=== PATIENT | female | born 1965 | race American Indian/Alaskan Native ===

== ENCOUNTER 2021-07-23 14:00 | Emergency (ER) | payer MEDICAID ==
[2021-07-23 14:11] VITALS: BP 149/98
--- NOTE | 2021-07-23 16:23 | Emergency Department Report ---
Blank Doc - Documentation Documentation: Patient was not in the examination room. I was informed by staff that she rec eived colostomy supplies and likely eloped.
== END 2021-07-23 16:18 ==
LOC: ED 14:00
DX: Z93.3 Colostomy status (principal); Z53.21 Procedure and treatment not carried out due to patient leaving prior to being seen by health care provider

== ENCOUNTER 2021-07-28 12:35 | Emergency (ER) | payer MEDICAID ==
[2021-07-28 12:45] VITALS: BP 162/100
--- NOTE | 2021-07-28 14:12 | Emergency Department Report ---
ED General Adult HPI - General Chief complaint: Psych Stated complaint: anxiety Time Seen by Provider: 07/28/21 14:03 Source: patient Mode of arrival: Wheelchair Limitations: No Limitations - History of Present Illness Initial comments: Patient presents with multiple complaints. She actually focused on and called an ambulance for shortness of breath. She states that she has had a runny nose and a cold. She was concerned because when she lays down she feels a little short of breath. There is no recent history of trauma. Patient does not get short of breath sitting here and speaking. When she gets up and moves, she states that she does get a little winded. There has been no productive cough. She has no fevers. There is no swelling in the feet or ankles. She states that she just feels very nervous about being alone. Patient does state that she has been dealing with depression. She has a colostomy that is difficult for her to manage. She has moved here and is having difficulty with her apartment. She states that she is trying to help her daughter out and her own financial situation has become more bleak. She is not suicidal or homicidal. She states that sometimes she does feel like giving up however. - Related Data Previous Rx's Medication Instructions Recorded Last Taken Type Furosemide [Lasix TAB] 40 mg PO QDAY #7 tablet 07/28/21 Unknown Rx Potassium Chloride [K-Dur] 20 meq PO BID #14 tab 07/28/21 Unknown Rx Allergies Allergy/AdvReac Type Severity Reaction Status Date / Time iodine Allergy Unknown Verified 07/28/21 12:40 ED Review of Systems ROS: Stated complaint: anxiety Other details as noted in HPI Comment: All other systems reviewed and negative Constitutional: denies: fever Eyes: denies: vision change ENT: as per HPI, congestion. denies: epistaxis Respiratory: see HPI, cough, shortness of breath Cardiovascular: denies: chest pain Endocrine: denies: unexplained weight loss Gastrointestinal: denies: abdominal pain Genitourinary: denies: dysuria Musculoskeletal: denies: back pain Skin: denies: rash Neurological: denies: headache Hematological/Lymphatic: denies: easy bruising ED Past Medical Hx - Past Medical History Previous Medical History?: Yes Hx Hypertension: Yes Hx Congestive Heart Failure: Yes Hx Diabetes: Yes Additional medical history: lupus - Surgical History Past Surgical History?: Yes Additional Surgical History: Colostomy - Family History Family history: hypertension - Medications Home Medications: Home Medications Medication Instructions Recorded Confirmed Last Taken Type Furosemide [Lasix TAB] 40 mg PO QDAY #7 tablet 07/28/21 Unknown Rx Potassium Chloride [K-Dur] 20 meq PO BID #14 tab 07/28/21 Unknown Rx ED Physical Exam - General Limitations: No Limitations, Other (Pulse ox noted and hypoxic. This improves with treatment) General appearance: alert, in distress (Mild) - Head Head exam: Present: atraumatic, normocephalic, normal inspection - Eye Eye exam: Present: normal appearance, EOMI. Absent: scleral icterus - ENT ENT exam: Present: normal exam, normal orophraynx - Neck Neck exam: Present: normal inspection. Absent: meningismus - Respiratory Respiratory exam: Present: normal lung sounds bilaterally. Absent: respiratory distress - Cardiovascular Cardiovascular Exam: Present: regular rate, normal rhythm - GI/Abdominal GI/Abdominal exam: Present: soft. Absent: tenderness - Extremities Exam Extremities exam: Present: normal capillary refill - Back Exam Back exam: Absent: CVA tenderness (R), CVA tenderness (L) - Neurological Exam Neurological exam: Present: alert, oriented X3, CN II-XII intact, normal gait, reflexes normal. Absent: motor sensory deficit - Psychiatric Psychiatric exam: Present: normal affect, normal mood - Skin Skin exam: Present: warm, dry ED Course Vital Signs 07/28/21 12:41 Temperature 97.9 F Pulse Rate 72 Respiratory 16 Rate Blood Pressure 162/100 [Left] O2 Sat by Pulse 92 Oximetry - Reevaluation(s) Reevaluation #1: 07/28/21 14:13 Chest x-ray was ordered. Old records reviewed. Reevaluation #2: 07/28/21 16:53 X-ray was noted and the patient was discharged. ED Medical Decision Making - Radiology Data Radiology results: report reviewed - Medical Decision Making Patient presents with multiple issues but primarily focused on shortness of breath. She actually does have pleural effusions. She believes that she is supposed to be taking water pill but is not taking it. Cannot verify her diuretic at all. At this time, I do believe that she likely has orthopnea related to pulmonary edema. She has been given diuretics here. Patient states that this been going on for quite some time. She has no pedal edema. She is not hypoxic. She is not having chest pain. I do not believe this represents a primary coronary event. Again, she states that she thinks that she is supposed to be taking a diuretic but is not. Patient was referred to her PCP for recheck. I do believe that diuresis is appropriate. Again, she is not hypoxic. She is in no respiratory distress at this time. She has been invited to return for any problems. Critical Care Time: No Critical care attestation.: If time is entered above; I have spent that time in minutes in the direct care of this critically ill patient, excluding procedure time. ED Disposition Clinical Impression: Situational depression, Shortness of breath, Pleural effusion URI (upper respiratory infection) Qualifiers: URI type: unspecified viral URI Qualified Code(s): J06.9 - Acute upper respiratory infection, unspecified Disposition: HOME / SELF CARE / HOMELESS Is pt being admited?: No Condition: Stable Instructions: Shortness of Breath, Adult, [id number], Cough, Adult, [id number], Shortness of Breath, Adult, Pleural Effusion Additional Instructions: Elevate the feet. Avoid salt. Continue to drink water. See your regular doctor for recheck. Take your home medication. Prescriptions: Potassium Chloride [K-Dur] 20 meq PO BID #14 tab Furosemide [Lasix TAB] 40 mg PO QDAY #7 tablet Referrals: PRIMARY MD REMINGTON [Referring] - 3-5 Days SURAJ WEAVER MD [Staff Physician] - 3-5 Days
--- NOTE | 2021-07-28 15:13 | XRay Report ---
CHEST 2 VIEWS INDICATION / CLINICAL INFORMATION: dyspnea. COMPARISON: None available. FINDINGS: SUPPORT DEVICES: None. HEART / MEDIASTINUM: Markedly enlarged cardiac silhouette, somewhat water bottle shaped, suggesting p ericardial effusion. LUNGS / PLEURA: Hazy bibasilar opacities. No focal consolidation. Trace bilateral effusions. No pneum othorax. ADDITIONAL FINDINGS: No significant additional findings. IMPRESSION: 1. Moderate to large pericardial effusion. 2. Hazy bibasilar airspace disease with suspected trace bilateral effusions. Signer Name: Vignesh Mejia MD Signed: 07/28/2021 3:08 PM Workstation Name: [id number]
[2021-07-28] MEDS ORDERED: FUROSEMIDE 20 MG TAB PO ONE (16:17)
== END 2021-07-28 18:09 | disposition home or self-care (01) ==
LOC: ED 12:35
DX: F32.9 Major depressive disorder, single episode, unspecified (principal); J06.9 Acute upper respiratory infection, unspecified; J90 Pleural effusion, not elsewhere classified; I11.0 Hypertensive heart disease with heart failure; I50.9 Heart failure, unspecified; E11.9 Type 2 diabetes mellitus without complications; Z98.890 Other specified postprocedural states; Z79.899 Other long term (current) drug therapy; Z88.6 Allergy status to analgesic agent
CPT/HCPCS: 71046; 99283

== ENCOUNTER 2021-08-01 13:33 | Emergency (ER) | payer MEDICAID ==
[2021-08-01 14:13] VITALS: BP 156/105
== END 2021-08-01 14:15 | disposition left against medical advice (07) ==
LOC: ED 13:33
DX: R06.02 Shortness of breath (principal); Z53.21 Procedure and treatment not carried out due to patient leaving prior to being seen by health care provider

== ENCOUNTER 2021-08-27 21:22 | Emergency (ER) | payer MEDICAID ==
--- NOTE | 2021-08-27 22:01 | Emergency Department Report ---
ED Psych HPI - General Chief Complaint: Medical Clearance Stated Complaint: SI. BODY ACHES Time Seen by Provider: 08/27/21 21:56 Source: EMS Mode of arrival: Stretcher - History of Present Illness Initial Comments: Patient is 56 years old female with history of bipolar disorder, depression, hypertension, congestive heart failure and SLE. Patient brought to the emergency room via EMS from home for evaluation of depression and suicidal ideation. Patient stated that she is not happy with her current situation. Patient stated that she had a colostomy bag placed 8 months ago because of intestinal obstruction and that make her feel really bad around he will. She also reported that her parents . She stated that she tried to kill herself 2 weeks ago by overdosing on her blood pressure medication. Patient stated that she is hearing voices also. She denied any homicidal ideation. MD Complaint: suicidal ideation, feels depressed - Related Data Previous Rx's Medication Instructions Recorded Last Taken Type Furosemide [Lasix TAB] 40 mg PO QDAY #7 tablet 07/28/21 Unknown Rx Potassium Chloride [K-Dur] 20 meq PO BID #14 tab 07/28/21 Unknown Rx Allergies Allergy/AdvReac Type Severity Reaction Status Date / Time iodine Allergy Unknown Verified 07/28/21 12:40 ED Review of Systems ROS: Stated complaint: SI. BODY ACHES Other details as noted in HPI Comment: All other systems reviewed and negative Constitutional: denies: chills, fever Respiratory: denies: cough, orthopnea, shortness of breath, SOB with exertion Cardiovascular: denies: chest pain, palpitations Gastrointestinal: denies: abdominal pain, nausea, vomiting, diarrhea, constipation, hematemesis, melena, hematochezia Musculoskeletal: arthralgia, myalgia Neurological: denies: headache, weakness, numbness, paresthesias, confusion, abnormal gait Psychiatric: depression, auditory hallucinations, suicidal thoughts. denies: visual hallucinations, homicidal thoughts ED Past Medical Hx - Past Medical History Hx Hypertension: Yes Hx Congestive Heart Failure: Yes Hx Diabetes: Yes Additional medical history: lupus - Surgical History Additional Surgical History: Colostomy - Medications Home Medications: Home Medications Medication Instructions Recorded Confirmed Last Taken Type Furosemide [Lasix TAB] 40 mg PO QDAY #7 tablet 07/28/21 Unknown Rx Potassium Chloride [K-Dur] 20 meq PO BID #14 tab 07/28/21 Unknown Rx ED Physical Exam - General Limitations: No Limitations General appearance: alert, in no apparent distress, anxious - Head Head exam: Present: atraumatic, normocephalic, normal inspection - Eye Eye exam: Present: normal appearance, PERRL - ENT ENT exam: Present: normal exam, normal orophraynx, mucous membranes moist - Neck Neck exam: Present: normal inspection, full ROM. Absent: tenderness, meningismus - Respiratory Respiratory exam: Present: normal lung sounds bilaterally - Cardiovascular Cardiovascular Exam: Present: regular rate, normal rhythm, normal heart sounds - GI/Abdominal GI/Abdominal exam: Present: soft, normal bowel sounds, other (Colostomy bag in place.). Absent: distended, tenderness, guarding, rebound, rigid, organomegaly, mass, bruit, pulsatile mass, hernia - Extremities Exam Extremities exam: Present: normal inspection, full ROM, normal capillary refill. Absent: tenderness - Back Exam Back exam: Present: normal inspection. Absent: CVA tenderness (R), CVA tenderness (L) - Neurological Exam Neurological exam: Present: alert, oriented X3, CN II-XII intact - Psychiatric Psychiatric exam: Present: depressed, anxious, suicidal ideation. Absent: agitated, flat affect, manic, homicidal ideation - Skin Skin exam: Present: warm, intact, normal color ED Course Vital Signs 08/27/21 21:32 Temperature 97.9 F Pulse Rate 82 Respiratory 18 Rate Blood Pressure 162/95 [Right] O2 Sat by Pulse 99 Oximetry ED Medical Decision Making - Lab Data Result diagrams: 08/27/21 22:26 08/27/21 22:26 - Medical Decision Making Patient is 56 years old female with history of bipolar disorder, depression, hypertension, congestive heart failure and SLE. Patient brought to the emergency room via EMS from home for evaluation of depression and suicidal ideation. Patient stated that she is not happy with her current situation. Patient stated that she had a colostomy bag placed 8 months ago because of intestinal obstruction and that make her feel really bad around he will. She also reported that her parents . She stated that she tried to kill herself 2 weeks ago by overdosing on her blood pressure medication. Patient stated that she is hearing voices also. She denied any homicidal ideation. Labs reviewed and is unremarkable except for hemoglobin of 9.4 which indicating chronic anemia. UA and UDS is still pending. Patient is medically cleared to be evaluated by our psychiatric team. Critical care attestation.: If time is entered above; I have spent that time in minutes in the direct care of this critically ill patient, excluding procedure time. ED Disposition Clinical Impression: Suicidal ideation, Generalized pain Condition: Stable Referrals: PRIMARY CARE, [Primary Care Provider] - 3-5 Days
[2021-08-27 23:06] LABS: Basophils # (Auto) 0.1 K/mm3 (0.0-0.1); Basophils % (Auto) 1.8 % (0.0-1.8); Eosinophils % (Auto) 0.8 % (0.0-4.3); Hematocrit 30.9 % (30.3-42.9); Hemoglobin 9.4 gm/dl (10.1-14.3); Lymphocytes # (Auto) 1.6 K/mm3 (1.2-5.4); Lymphocytes % (Auto) 32.4 % (13.4-35.0); Mean Corpuscular HGB Conc 31 % (30-34); Mean Corpuscular Volume 74 fl (79-97); Monocytes # (Auto) 0.5 K/mm3 (0.0-0.8); Monocytes % (Auto) 10.7 % (0.0-7.3); Platelet Count 278 K/mm3 (140-440); Red Blood Count 4.18 M/mm3 (3.65-5.03)
[2021-08-27 23:22] LABS: BUN/Creatinine Ratio 34; Blood Urea Nitrogen 34 mg/dL (7-17); Calcium 9.7 mg/dL (8.4-10.2); Hemolysis Index 0
[2021-08-27] MEDS ORDERED: ACETAMINOPHEN 325 MG TAB ONE (23:54)
[2021-08-27] MEDS ORDERED: ACETAMINOPHEN 325 MG TAB PO ONE (23:57)
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
[2021-08-28] MEDS ORDERED: DIVALPROEX DR 125 MG TAB PO SCH (11:00)
--- NOTE | 2021-08-28 11:10 | Emergency Department Report ---
Blank Doc - Documentation Documentation: Patient is still here with psychiatric illness that is going to require admiss ion. Psychiatric consult has been noted. Medically, patient had started complaining of decreased output from her colostomy. She reported abdominal pain. There was no obvious blood. Patient had normal color stool in the colostomy bag. She did have some distention without tympany. Plain films were ordered. 1300-plain films have been noted. Patient was treated symptomatically. We will continue to await psychiatric disposition.
--- NOTE | 2021-08-28 12:33 | XRay Report ---
ABDOMEN 4 VIEW(S) INDICATION: decreased colostomy output. COMPARISON: 2 views of the chest from 07/28/2021. FINDINGS: Bowel gas pattern: The left colon contains a large amount of stool. There is moderate/severe gaseous distention of the stomach. No other significant abnormality. Free air: None seen. Stones: None seen. Chest: Stable cardiomegaly. No acute findings. Additional Findings: No additional significant findings. IMPRESSION: 1. Findings suggestive of constipation. 2. Moderate/severe gastric distention is nonspecific. Signer Name: Nilesh Rae MD Signed: 08/28/2021 12:29 PM Workstation Name: [id number]
[2021-08-28] MEDS ORDERED: DOCUSATE SODIUM 100 MG CAP PO ONE (12:58)
[2021-08-28] MEDS ORDERED: SENNOSIDES 8.6 MG TAB PO ONE (12:58)
[2021-08-28] MEDS ORDERED: ACETAMINOPHEN 325 MG TAB PO ONE (13:30)
[2021-08-28 13:42] LABS: Bilirubin,Urine NEG (Negative); Blood,Urine NEG (Negative); Color,Urine Yellow (Yellow); Mucus,Urine FEW /HPF
[2021-08-28] MEDS ORDERED: QUEtiapine 25 MG TAB PO SCH (14:00)
[2021-08-28 14:01] LABS: Amphetamine Screen,Urine Negative; Benzodiazepines Screen,Urine Negative; Cannabinoid Screen,Urine Negative; Cocaine Screen,Urine Negative; Methadone Screen,Urine Negative; Opiate Screen,Urine Negative
[2021-08-28 23:16] VITALS: BP 151/94
== END 2021-08-28 23:52 | disposition admitted as inpatient to this hospital (09) ==
LOC: ED 21:22
DX: R45.851 Suicidal ideations (principal); R52 Pain, unspecified; Z91.041 Radiographic dye allergy status; I10 Essential (primary) hypertension; E11.8 Type 2 diabetes mellitus with unspecified complications; Z86.79 Personal history of other diseases of the circulatory system; Z20.822 Contact with and (suspected) exposure to COVID-19
CPT/HCPCS: 36415; 74022; 80048; 80307; 81001; 85025; 99285; U0003; 80320; 82962; G0480

== ENCOUNTER 2021-09-06 10:40 | Emergency (ER) | payer MEDICAID ==
[2021-09-06 10:43] VITALS: BP 140/96
--- NOTE | 2021-09-06 11:23 | Emergency Department Report ---
Blank Doc - Documentation Documentation: Patient is 56 years old female with history of bipolar disorder. Patient also had history of colon surgery with colostomy. Patient presented to the ER via EMS from home stating that she wanted a colostomy bag but she run out of her colostomy bag. Patient does not have any other complaint. She has no suicidal or homicidal ideation. No visual or auditory hallucination. Nurses provided the patient with a colostomy bag and she left.
== END 2021-09-06 12:00 | disposition left against medical advice (07) ==
LOC: ED 10:40
DX: Z93.3 Colostomy status (principal); Z53.21 Procedure and treatment not carried out due to patient leaving prior to being seen by health care provider